=== PATIENT | male | born 1960 | race Caucasian/White ===

== ENCOUNTER → 2023-09-12 23:59 | Outpatient (BNV) | payer OTHER, SELFPAY | PROVIDERS: PCP Hospitalist; Visit Provider Internal Medicine Cardiovascular Disease | DX: I21.02 ST elevation (STEMI) myocardial infarction involving left anterior descending coronary artery (principal) | CPT/HCPCS: 92941; 93458; 99152 ==

== ENCOUNTER 2023-10-02 10:55 | Outpatient (AMB) | payer OTHER, SELFPAY ==
[2023-10-02 11:24] VITALS: BP 130/60; PULSE 66; BMI 37.1
--- NOTE | 2023-10-02 11:24 | MHC.OFFVIS ---
Intake Vital Signs 10/02/23 11:24 Height 5 ft 6 in Weight 229 lb 11.547 oz BMI 37.1 BP 130/60 Blood Pressure Location Rt brachial Position Sitting Pulse 66 Pulse Source Pulse Oximeter Intake Visit Reasons: fu [facility] cardiac cath Intake Note: f/up [facility] Cardiac cath pt its slight chest pain. [employer] Consultant Required: No Accompanied by: Self / Same As Patient Allergies hydrocortisone Allergy (Intermediate, Verified 09/28/21 10:08) Hives Medication List - Last Reconciled 10/02/23 by Austen Hernadez MD aspirin (Adult Aspirin Regimen) 81 mg PO DAILY atorvastatin 80 mg PO BEDTIME lisinopril 5 mg PO DAILY metoprolol succinate ER 25 mg PO DAILY ticagrelor (Brilinta) 90 mg PO BID HPI HPI Comments History of Present Illness Details [age] year gentleman here for follow-up. He was seen at [facility] during STEMI call when he presented with anterior ST elevation ND and VT arrest. He was resuscitated and taken urgently for cardiac catheterization which revealed proximal LAD plaque rupture with HARSH 2 flow. He had LAD diagonal bifurcation in wall which was treated with provisional stenting technique. He has done well since then. He still has some left-sided pains from CPR which happens when he coughs but definitely improving. He is taking his medications regularly. He is on aspirin and Brilinta. He is saying that after coming home he had blood in his stool and went back to [facility]. He does not remember if the cause was found for his bleeding. He was discharged home and was advised to continue his antiplatelet therapy which she has been taking. He is on atorvastatin 80 mg. [facility] Social History Housing: Apartment Patient Tobacco Use Status: Never used Tobacco e-Cigarette/Vaping Use: Never Used Second Hand Smoke Exposure: No service: Yes Current occupational status: employed Current occupation: [employer] Current occupational exposures/hazards: No Review of Systems Const Reports chills, Reports fatigue, Reports fever(s), Reports frequent falls, Reports weakness, Reports weight gain and Reports weight loss ENT Reports dizziness Card Reports chest pain, Reports leg edema, Reports lightheadedness, Reports palpitations, Reports dyspnea and Reports dyspnea on exertion Resp Reports cough, Reports dyspnea and Reports dyspnea on exertion GI Reports hematochezia Musc Reports abnormal gait, Reports muscle weakness, Reports numbness, Reports radiating pain into limb and Reports tingling Neuro Reports abnormal gait, Reports dizziness, Reports frequent falls, Reports numbness, Reports tingling and Reports weakness Endo Reports fatigue and Reports palpitations Physical Exam Vital Signs: Last Vital Signs Pulse 66 10/02/23 11:24 BP 130/60 10/02/23 11:24 BMI result Body Mass Index 37.1 GENERAL APPEARANCE: in no acute distress, pleasant. NECK: no carotid bruit, no jugular venous distention. SKIN: no suspicious lesions, warm and dry. HEART: no murmurs, regular rate and rhythm. LUNGS: clear to auscultation bilaterally. ABDOMEN: soft, nontender. EXTREMITIES: no edema. PERIPHERAL PULSES: equal. NEUROLOGIC: No gross deficits, AAO X 3 Assessment & Plan Assessment & Plan (1) ST elevation myocardial infarction (STEMI) of anterior wall: Code(s): I21.09 - ST elevation (STEMI) myocardial infarction involving other coronary artery of anterior wall Plan Pleasant 63 year gentleman is here for follow-up. Was seen during STEMI call when he presented with cardiac arrest and anterior ST-elevation ND. He was taken emergently for cardiac catheterization where LAD was stented across the large diagonal branch with provisional stenting approach. He has done well since then. He is on aspirin and Brilinta. I have advised him to continue both for at least a year and after that Brilinta becomes optional. He has been experiencing some nosebleeds and injuries to his nose doing work with some bleeding. He is asking whether Brilinta can be changed. I have advised him currently not to change Brilinta and wait for few months as he is within 1 month of his primary PCI. He will see us back in 3 months. At that stage I will consider changing him to Plavix from Brilinta. Aspirin should be lifelong. I have reviewed his records at [facility] and he got admitted after discharge with STEMI with diarrhea and blood in stool. He was thought to have enterocolitis with no drop in hemoglobin noted. He was treated conservatively and has done well since then with no bleeding. I think he can continue aspirin Brilinta as before. Thank you for allowing me to participate in the care of your patient. Please feel free to contact me if you have any questions. Orders: Orders Cardiac Rehab Today I21.09 - ST elevation (STEMI) myocardial infarction involving other coronary artery of anterior wall, Z98.61 - Coronary angioplasty status Coding Level of Care Code Est Pt Level 4 (56930) Diagnoses ST elevation myocardial infarction (STEMI) of anterior wall I21.09
== END 2023-10-02 11:58 | disposition home or self-care (01) ==
PROVIDERS: PCP Hospitalist; Visit Provider Internal Medicine Cardiovascular Disease
DX: I21.09 ST elevation (STEMI) myocardial infarction involving other coronary artery of anterior wall (principal)
CPT/HCPCS: 99214

== ENCOUNTER → 2023-10-02 10:55 | Outpatient (BNVA) | payer OTHER, SELFPAY | PROVIDERS: PCP Hospitalist; Visit Provider Internal Medicine Cardiovascular Disease | DX: I21.09 ST elevation (STEMI) myocardial infarction involving other coronary artery of anterior wall (principal) | CPT/HCPCS: 99212 ==

== ENCOUNTER 2024-11-04 13:53 | Outpatient (AMB) | payer MEDICARE, MEDICAID, SELFPAY ==
--- NOTE | 2024-11-04 14:46 | MHC.OFFVIS ---
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 He was seen at [facility] during STEMI call when he presented with anterior ST elevation SD and VT arrest. He was resuscitated and taken urgently for cardiac catheterization which revealed proximal LAD plaque rupture with HARSH 2 flow. He had LAD diagonal bifurcation in wall which was treated with provisional stenting technique. He has done well since then. He still has some left-sided pains from CPR which happens when he coughs but definitely improving. He is taking his medications regularly. He is on aspirin and Brilinta. He is saying that after coming home he had blood in his stool and went back to [facility]. He does not remember if the cause was found for his bleeding. He was discharged home and was advised to continue his antiplatelet therapy which she has been taking. He is on atorvastatin 80 mg. 11/04/2024: He returns after more than 1 year. He is saying that he did not get any appointment from office. He is asking whether he can stop Brilinta. No bleeding issues. No chest discomfort or shortness of breath. Clinically stable. [facility] Social History Housing: Apartment Patient Tobacco Use Status: Never used Tobacco e-Cigarette/Vaping Use: Never Used Second Hand Smoke Exposure: No service: Yes Current occupational status: employed Current occupation: [employer] Current occupational exposures/hazards: No Review of Systems Const Denies chills, Denies fatigue, Denies fever(s), Denies frequent falls, Denies weakness, Denies weight gain and Denies weight loss ENT Denies dizziness Card Denies chest pain, Denies leg edema, Denies lightheadedness, Denies palpitations, Denies dyspnea and Denies dyspnea on exertion Resp Denies cough, Denies dyspnea and Denies dyspnea on exertion GI Denies hematochezia Musc Denies abnormal gait, Denies muscle weakness, Denies numbness, Denies radiating pain into limb and Denies tingling Neuro Denies abnormal gait, Denies dizziness, Denies frequent falls, Denies numbness, Denies tingling and Denies weakness Endo Denies fatigue and Denies palpitations Physical Exam Vital Signs: Last Vital Signs Pulse 65 11/04/24 14:49 BP 110/70 11/04/24 14:49 BMI result Body Mass Index 40.8 GENERAL APPEARANCE: in no acute distress, pleasant. NECK: no carotid bruit, no jugular venous distention. SKIN: no suspicious lesions, warm and dry. HEART: no murmurs, regular rate and rhythm. LUNGS: clear to auscultation bilaterally. ABDOMEN: soft, nontender. EXTREMITIES: no edema. PERIPHERAL PULSES: equal. NEUROLOGIC: No gross deficits, AAO X 3 Office Procedures EKG Details: Sinus rhythm 65 beats per minute, normal axis, nonspecific ST changes, QTC 413 milliseconds. 85079-[id number], Complete Assessment & Plan Assessment & Plan (1) Stable angina: Code(s): I20.89 - Other forms of angina pectoris Category: Medical Plan 64 year gentleman who is here for follow-up. He has known history of anterior wall SD with cardiac arrest. This was treated with PCI. He made a good recovery after that. No significant residual disease was noted on his index cardiac catheterization. He is on aspirin and Brilinta currently. Brilinta is optional LV discussed and we have decided to stop the Brilinta. We will continue rest of his medications as before. He will follow up with us in 6 months. Thank you for allowing me to participate in the care of your patient. Please feel free to contact me if you have any questions. Medications: Discontinued ticagrelor (Brilinta) Discontinued Reason: Change Referral Type 90 mg PO BID Coding Level of Care Code Est Pt Level 4 (59213) Diagnoses Stable angina I20.89 CPT Codes EKG - CPT: 68353-[id number], Complete ([id number])
[2024-11-04 14:49] VITALS: BP 110/70; PULSE 65; BMI 40.8
--- OUTSIDE RECORDS SUMMARY | 2024-11-04 16:11 | XMS_ITS | Clinical Summary ---
Author Organization [employer] Address [address] [facility] [address] [place] [address] Care Team Providers Care Patient Registration Specialist Name Role Phone Unavailable Primary Care Provider Unavailabl e Social History Tobacco Use Types Packs/Day Years Used Date Smoking Tobacco: Never Assessed Sex and Gender Information Value Date Recorded Sex Assigned at Male 08/06/2022 10:27 AM EDT Legal Sex Male 10:27 AM EDT Gender Identity Male 08/06/2022 10:27 AM EDT Sexual Orientation Straight 08/06/2022 10 :27 AM EDT Plan of Treatment Health Maintenance Due Date Last Done Comments CT Colonography 1961 Colonoscopy 1961 Colorectal Cancer Screening 1961 Depression Screening 1961 FIT DNA/Cologuard 1961 FIT 1961 FOBT 1961 Lipid Panel 1961 Sigmoidoscopy 1961 Alcohol/Substance Use Screening 1973 Tobacco Screening 1973 DTaP/Tdap/Td Vaccines (1 - Tdap) 1980 Zoster Vaccines (1 of 2) 2011 COVID-19 Vaccine (2023-2 5 season) 2024 Influenza Vaccine (#1) 2024 RSV Patients and Pa tients Aged 60 years or older (1 - 1-dose 75+ series) 2036 HIB Vaccines Aged Out No longer eligi ble based on patient's age to complete this topic HPV Vaccines Aged Out No longer eligi ble based on patient's age to complete this topic Hepatitis A Vaccines Aged Out No long er eligible based on patient's age to complete this topic Hepatitis B Vaccines Aged Out No long er eligible based on patient's age to complete this topic IPV Vaccines Aged Out No longer eligi ble based on patient's age to complete this topic Meningococcal Vaccine Aged Out No ernestina aiden eligible based on patient's age to complete this topic Pneumococcal Vaccine: Pediat rics (0 to 5 Years) and At-Risk Patients (6 to 49) Years) Aged Out No longer eligible b ased on patient's age to complete this topic RSV under 20 months Aged Out No longe r eligible based on patient's age to complete this topic Rotavirus Vaccines Aged Out No longer eligible based on patient's age to complete this topic
--- OUTSIDE RECORDS SUMMARY | 2024-11-04 16:11 | XMS_ITS | Encounter Summary ---
Author Organization [employer] Address [address] [facility] [address] [place] [address] Care Team Providers Care Lead Caster Name Role Phone Unavailable Primary Care Provider Unavailabl e Encounter Details Date Type Department Care Team (Latest Contact Info) Description 12/14/2019 Abstract [facility] CONVERSIONS Dental, Provider, DDS Social History Tobacco Use Types Packs/Day Years Used Date Smoking Tobacco: Never Assessed Sex and Gender Information Value Date Recorded Sex Assigned at Male 08/06/2022 10:27 AM EDT Legal Sex Male 10:27 AM EDT Gender Identity Male 08/06/2022 10:27 AM EDT Sexual Orientation Straight 08/06/2022 10 :27 AM EDT documented as of this encounter Plan of Treatment Not on file documented as of this encounter Visit Diagnoses Not on filedocumented in this encounter
== END 2024-11-04 15:24 | disposition home or self-care (01) ==
PROVIDERS: Visit Provider Internal Medicine Cardiovascular Disease
DX: I20.89 Other forms of angina pectoris (principal)
CPT/HCPCS: 93010; 99214

== ENCOUNTER → 2024-11-04 13:53 | Outpatient (BNVA) | payer MEDICARE, MEDICAID, SELFPAY | PROVIDERS: Visit Provider Internal Medicine Cardiovascular Disease | DX: I20.89 Other forms of angina pectoris (principal); R94.31 Abnormal electrocardiogram [ECG] [EKG] | CPT/HCPCS: 93005; 99212 ==

== ENCOUNTER 2025-05-05 09:01 | Outpatient (AMB) | payer MEDICARE, MEDICAID, SELFPAY ==
--- OUTSIDE RECORDS SUMMARY | 2025-05-05 09:26 | XMS_ITS | Encounter Summary ---
Author Organization [employer] Address [address] [facility] [address] [place] [address] Care Team Providers Care B2B Sales Manager Name Role Phone Unavailable Primary Care Provider Unavailabl e Encounter Details Date Type Department Care Team (Latest Contact Info) Description 12/14/2019 Abstract [facility] CONVERSIONS Dental, Provider, DDS Social History [...]
[2025-05-05 09:56] VITALS: BP 130/78; PULSE 63; BMI 41.3
--- NOTE | 2025-05-05 09:56 | MHC.OFFVIS ---
Vital Signs 05/05/25 09:56 Height 5 ft 6 in Weight 255 lb 11.779 oz BMI 41.3 BP 130/78 Blood Pressure Location Lt brachial Position Sitting Pulse 63 Intake Visit Reasons: 6m follow up Intake Note: 6 month follow-up c/o leg swellling ? sleep study has been about to take Instructor Psychiatric Aide Required: No Allergies hydrocortisone Allergy (Intermediate, Verified 09/28/21 10:08) Hives Medication List - Last Reconciled 05/05/25 by Austen Hernadez MD aspirin (Adult Aspirin Regimen) 81 mg PO DAILY atorvastatin 80 mg PO BEDTIME lisinopril 5 mg PO DAILY metoprolol succinate ER 25 mg PO DAILY HPI Comments Details: 64-year-old gentleman here for follow-up. He was seen at [facility] during STEMI call when he presented with anterior ST elevation MN and VT arrest. He was resuscitated and taken urgently for cardiac catheterization which revealed proximal LAD plaque rupture with HARSH 2 flow. He had LAD diagonal bifurcation in wall which was treated with provisional stenting technique. He has done well since then. He still has some left-sided pains from CPR which happens when he coughs but definitely improving. He is taking his medications regularly. He is on aspirin and Brilinta. He is saying that after coming home he had blood in his stool and went back to [facility]. He does not remember if the cause was found for his bleeding. He was discharged home and was advised to continue his antiplatelet therapy which she has been taking. He is on atorvastatin 80 mg. 11/04/2024: He returns after more than 1 year. He is saying that he did not get any appointment from office. He is asking whether he can stop Brilinta. No bleeding issues. No chest discomfort or shortness of breath. Clinically stable. 05/05/25: He is here for follow-up. He is denying any chest discomfort or shortness of breath with activities. No orthopnea or PND. He has significant peripheral edema though. He is saying that his feet are swollen but on exam is legs are swollen all the way to the knees. There is bilateral swelling. [facility] Social History Housing: Apartment Patient Tobacco Use Status: Never used Tobacco e-Cigarette/Vaping Use: Never Used Second Hand Smoke Exposure: No service: Yes Current occupational status: employed Current occupation: [employer] Current occupational exposures/hazards: No Review of Systems Const Denies chills, Denies fatigue, Denies fever(s), Denies frequent falls, Denies weakness, Denies weight gain and Denies weight loss ENT Denies dizziness Card Denies chest pain, Denies leg edema, Denies lightheadedness, Denies palpitations, Denies dyspnea, Denies dyspnea on exertion, Denies orthopnea and Denies other (loss of consciousness) Resp Denies cough, Denies dyspnea and Denies dyspnea on exertion GI Denies hematochezia and Denies change in stool character Musc Denies abnormal gait, Denies muscle weakness, Denies numbness, Denies radiating pain into limb and Denies tingling Neuro Denies abnormal gait, Denies dizziness, Denies frequent falls, Denies numbness, Denies tingling and Denies weakness Endo Denies fatigue and Denies palpitations Physical Exam Vital Signs: Last Vital Signs Pulse 63 05/05/25 09:56 BP 130/78 05/05/25 09:56 BMI result Body Mass Index 41.3 GENERAL APPEARANCE: in no acute distress, pleasant. NECK: no carotid bruit, no jugular venous distention. SKIN: no suspicious lesions, warm and dry. HEART: no murmurs, regular rate and rhythm. LUNGS: clear to auscultation bilaterally. ABDOMEN: soft, nontender. EXTREMITIES: 2+ edema to the knees. PERIPHERAL PULSES: equal. NEUROLOGIC: No gross deficits, AAO X 3 Assessment & Plan Assessment & Plan (1) Stable angina: Code(s): I20.89 - Other forms of angina pectoris Category: Medical (2) Peripheral edema: Code(s): R60.0 - Localized edema Category: Medical Plan [id number] who is here for follow-up. He has known history of anterior wall MN with cardiac arrest. He underwent primary PCI. He did well after that and is currently on aspirin monotherapy. Blood pressure is well controlled. His main complaint today is lower extremity edema. He is denying any orthopnea or PND but has significant edema on both legs. We will start him on Lasix 40 mg to help reduce the edema. I will check an echocardiogram to assess LV function. If no obvious issues on echocardiography then would to further workup including urinalysis and liver function testing. Thank you for allowing me to participate in the care of your patient. Please feel free to contact me if you have any questions. Orders: Orders CA echo transthoracic complete Today R60.0 - Localized edema Coding Level of Care Code Est Pt Level 4 (19666) Diagnoses Stable angina I20.89 Peripheral edema R60.0
== END 2025-05-05 10:25 | disposition home or self-care (01) ==
LOC: HO.HCS 09:01
PROVIDERS: Visit Provider Internal Medicine Cardiovascular Disease
DX: I20.89 Other forms of angina pectoris (principal); R60.0 Localized edema
CPT/HCPCS: 99214

== ENCOUNTER → 2025-05-05 09:01 | Outpatient (BNVA) | payer MEDICARE, MEDICAID, SELFPAY | PROVIDERS: Visit Provider Internal Medicine Cardiovascular Disease | DX: R60.0 Localized edema (principal); I20.89 Other forms of angina pectoris | CPT/HCPCS: 99212 ==

== ENCOUNTER → 2025-06-14 07:56 | Outpatient (REF) | payer MEDICARE, MEDICAID, SELFPAY ==
--- NOTE | 2025-06-14 07:59 | CA_ITS ---
Transthoracic Echocardiogram Patient (Last, First, Middle): Dane Singleton E Gender: M Date of : 1960 Age: 64 Procedure Date: 06/14/2025 Procedure Type: Transthoracic Echocardiogram Location: OP Height: 167.64 cm Weight: 106.6 kg BSA: 2.14 m2 Heart Rate: 68 bpm BP: 132 / 70 mmHg Fisher [place] Net: SB Referring MD: Austen Hernadez MD Furniture Finisher: Jose Manuel Craig MD Symptoms: R60.0 - Localized edema Study Quality: Technically Difficult ECG Rhythm: Sinus Conclusions: - 1. Hyperdynamic LV EF of greater than 70% with impaired relaxation filling pattern 2. Mitral annular calcification noted with normal cardiac valvular Dopplers Findings Left Ventricle Normal left ventricular cavity size. There is normal left ventricular wall thickness. The left ventricular systolic function is hyperdynamic. The visually estimated ejection fraction is >70%. Regional wall motion abnormalities can not be excluded due to suboptimal endocardial definition. Spectral Doppler is indicative of an impaired relaxation filling pattern. E/E prime ratio is between 8 and 15 consistent with indeterminate filling pressures. There is mild septal asymmetric hypertrophy. Right Ventricle The right ventricle was not well visualized. Atria The left atrium is mildly dilated. Interatrial shunt cannot be excluded. The right atrium was not well visualized. Aortic Valve The aortic valve was not well visualized. There is no aortic valve stenosis. There is no aortic valve regurgitation. Mitral Valve The mitral valve was not well visualized. There is moderate posterior mitral leaflet thickening. There is moderate mitral annular calcification. There is trace mitral valve regurgitation. There is no mitral valve stenosis. Pulmonic Valve The pulmonic valve was not well visualized. Tricuspid Valve Tricuspid regurgitation envelope is inadequate for calculation of right ventricular systolic pressure. Normal right atrial pressure. There is no evidence of pulmonary hypertension. Great Vessels All visible segments of the aorta are normal in size. The pulmonary artery was not well visualized. There is no dilatation of the ascending aorta measuring 3.40 cm. Small plaque is seen in the sino tubular ridge. Venous The inferior vena cava is normal in size. Pericardium/Pleural The pericardium was not well visualized. Prior Study Comparison No prior study available for comparison. Measurements 2D Linear Measurements IVSd: 1.33 0.6-0.9/0.6-1.0 cm LVIDd: 4.83 3.9-5.3/4.2-5.9 cm LVIDd Index: 2.26 2.4-3.2/2.2-3.1 cm/m2 LVIDs: 2.58 2.0-3.6 cm LVPWd: 1.03 0.7-1.1 cm LA Diam: 4.70 2.7-3.8/3.0-4.0 cm LAIDs Index: 2.20 1.5-2.3 cm/m2 LV Mass: 269.38 67-162/88-224 g LV Mass Index: 125.88 43-95/49-115 g/m2 LVOT Diam: 2.10 3.0+(-)1.3 cm 2D Systolic Function EF 4C: 79.40 >55% EF 2C: 66.80 >55% EF BiP: 73.40 >55% Mitral Valve MV Pk E: 1.16 MV PK A: 1.31 MV Decel Time: 283.00 E/A: 0.90 E'Lateral: 5.00 E'Medial: 5.87 E/E' Med: 19.80 E/E' Lat: 23.20 PHT: 83.00 MVA PHT: 2.65 Decel [place]: 4.11 Aortic Valve AoV Pk Jan: 1.58 AoV Pk Grad: 10.00 HEMAL: 2.87 LVOT LVOT Pk Jan: 1.31 LVOT Mn Jan: 0.95 LVOT VTI: 0.27 LVOT Pk Grad: 7.00 LVOT Mn Grad: 4.00 LVOT Diam: 2.10 LVOT Area: 3.46 Diastolic Function MV Pk E: 1.16 MV Pk A: 1.31 E/A: 0.90 E'Medial: 5.87 E/E' Med: 19.80 E' Laterial: 5.00 E/E' Lat: 23.20 Right Ventricle TAPSE (mm): 25.30 TVS' Jan: 19.20 Tricuspid Valve RA Press: 3.00 Great Vessels Aorta Sinus of Valsalva: 3.70 2.0-3.5 cm Ao Asc: 3.40 2.1-3.4 cm Pulmonary Valve PV Pk Jan: 1.59 Peak PV Grad: 10.00 Updated in Other Vendor System with Status of Final Jose Manuel Craig MD electronically signed on 06/14/2025 1:54:20 PM with status of Final
--- OUTSIDE RECORDS SUMMARY | 2025-06-14 08:00 | XMS_ITS | Encounter Summary ---
Author Organization [employer] Address [address] [facility] [address] [place] [address] Care Team Providers Care Theatre Manager Name Role Phone Unavailable Primary Care Provider Unavailabl e Encounter Details Date Type Department Care Team (Latest Contact Info) Description 12/14/2019 Abstract [facility] CONVERSIONS Dental, Provider, DDS Social History [...]
--- OUTSIDE RECORDS SUMMARY | 2025-06-14 08:00 | XMS_ITS | Clinical Summary ---
Author Organization [employer] Address [address] [facility] [address] [place] [address] Care Team Providers Care Brick Machine Operator Name Role Phone Unavailable Primary Care Provider [...] FOBT 1961 Lipid Panel 1961 Sigmoidoscopy 1961 Disability Screening 1961 Alcohol/Substance Use Screening 1973 Tobacco Screening 1973 DTaP/Tdap/Td Vaccines (1 - Tdap) 1980 Pneumococcal Vaccine: 50+ Ye ars (1 of 1 - PCV) 2011 Zoster Vaccines (1 of 2) 2011 COVID-19 Vaccine (1 - 2023-2 5 season) 2025 Influenza Vaccine (#1) 2025 RSV Patients and Pa tients Aged 60 [...] patient's age to complete this topic Meningococcal B Vaccine Aged Out No l onger eligible based on patient's age to complete [...]
== END ==
LOC: HO.CARD 07:56
PROVIDERS: Visit Provider Internal Medicine Cardiovascular Disease
DX: R60.0 Localized edema (principal)
CPT/HCPCS: 93306

== ENCOUNTER → 2025-06-14 07:59 | Outpatient (BNV) | payer MEDICARE, MEDICAID, SELFPAY | PROVIDERS: Visit Provider Internal Medicine Cardiovascular Disease | DX: I50.9 Heart failure, unspecified (principal); I42.2 Other hypertrophic cardiomyopathy; I34.81 Nonrheumatic mitral (valve) annulus calcification | CPT/HCPCS: 93306 ==

== ENCOUNTER 2025-08-31 12:44 | Outpatient (AMB) | payer MEDICARE, MEDICAID, SELFPAY ==
[2025-08-31 12:59] VITALS: BP 126/76; PULSE 69; BMI 39.4
--- NOTE | 2025-08-31 12:59 | A.OFFVIS_ITS ---
Vital Signs 08/31/25 12:59 Height 5 ft 6 in Weight 243 lb 13.3 oz BMI 39.4 BP 126/76 Blood Pressure Location Lt brachial Position Sitting Pulse 69 Pulse Source Pulse Oximeter Intake Visit Reasons: 3 mth f/up [employer]oc[employer] Required: No Accompanied by: Self / Same As Patient Allergies hydrocortisone Allergy (Intermediate, Verified 08/31/25 13:08) Hives Medication List - Last Reconciled 08/31/25 by Kenneth Bae NP aspirin (Adult Aspirin Regimen) 81 mg PO DAILY atorvastatin 80 mg PO BEDTIME furosemide (Lasix) 40 mg PO DAILY lisinopril 5 mg PO DAILY metoprolol succinate ER 25 mg PO DAILY HPI Comments Details: This is a 64-year-old male patient coming in for a follow-up visit. Patient with a history of STEMI in September of 2023 and VT arrest. He was resuscitated and underwent cardiac catheterization that revealed LAD block rupture, had LAD diagonal bifurcation and underwent PCI placement. At his last visit, patient has been reporting some leg swelling for which patient was put on Lasix therapy. Patient has undergone an echo since then. Today, patient is reporting feeling well overall without any cardiac symptoms of exertional chest pain, shortness of breath, palpitations, dizziness, orthopnea, PND, leg edema, presyncope or syncope. Patient is reporting compliance with all medications but is asking about coming off all the medications on his list as he believes that medications are not good for health. [facility] Social History Housing: Apartment Patient Tobacco Use Status: Never used Tobacco e-Cigarette/Vaping Use: Never Used Second Hand Smoke Exposure: No service: Yes Current occupational status: employed Current occupation: [employer] Current occupational exposures/hazards: No Review of Systems Const Denies daytime sleepiness, Denies difficulty sleeping, Denies snoring, Denies stops breathing during sleep and Denies weakness Card Denies chest pain, Denies rapid heart rate, Denies irregular heart rhythm, Denies claudication, Denies leg edema, Denies lightheadedness, Denies palpitations, Denies dyspnea, Denies dyspnea on exertion, Denies orthopnea, Denies paroxysmal nocturnal dyspnea and Denies slow heart rate Resp Denies cough, Denies dyspnea, Denies dyspnea on exertion and Denies snoring GI Reports no additional complaints, Denies hematochezia, Denies change in stool character and Denies dyspepsia Musc Denies abnormal gait, Denies muscle weakness and Denies numbness Neuro Denies abnormal gait, Denies numbness and Denies weakness Endo Denies palpitations Physical Exam Vital Signs: Last Vital Signs Pulse 69 08/31/25 12:59 BP 126/76 08/31/25 12:59 BMI result Body Mass Index 39.4 Const General: cooperative, healthy appearing, comfortable and no acute distress Orientation/consciousness: patient oriented x3 HEENT Head: Yes normal to inspection Neck Neck: Yes normal visual inspection, Yes trachea midline and Yes supple Chest Chest palpation & inspection: normal inspection of the chest Resp Effort & Inspection: normal respiratory effort Auscultation: clear to auscultation bilaterally, no crackles, no rales, no rhonchi and no wheezes Cardio Jugular venous distension: no JVD Palpation: normal PMI Rate: regular rate Rhythm: regular rhythm Heart sounds: S1 normal heart sound present, S2 normal heart sound present, no click, no gallops, no murmurs and no rubs Peripheral pulses: Peripheral pulses 2+ throughout GI Inspection: Yes normal to inspection Palpation (GI): Soft to palpation Auscultation: normal bowel sounds Skin General skin exam: no rashes or lesions noted Neuro General: patient oriented x3 Extrem General: Yes normal to inspection, No no pedal edema and No calf tenderness Psych Appearance: grossly normal Mental Status: mental status grossly normal Speech and movement: Normal speech and movement present Assessment & Plan Assessment & Plan (1) Stable angina: Code(s): I20.89 - Other forms of angina pectoris Category: Medical (2) ST elevation myocardial infarction (STEMI) of anterior wall: Code(s): I21.09 - ST elevation (STEMI) myocardial infarction involving other coronary artery of anterior wall Category: Medical Plan In September of 2023, patient was at [facility] for STEMI and VT arrest where patient was resuscitated and underwent cardiac catheterization that showed RCA is small in size with a large marginal branch with ostial disease of 80% stenosis and a wrap-around LAD with proximal plaque rupture involving LAD diagonal bifurcation. Patient was treated with PCI to the LAD. 06/14/2025-patient underwent an echo study that showed hyperdynamic LVEF of greater than 70% with impaired relaxation filling pattern and mitral annular calcification. Clinically stable and without any cardiac symptoms. Patient was put on Lasix therapy due to complaints of lower extremity swelling however patient states that he thinks this is more dependent due to him sleeping on a chair versus a bed. Patient thinks that his swelling is improved in significantly and is no longer getting any edema given that he is sleeping in his bed. Patient would li ke to come office Lasix therapy. Advised on a low-salt diet, daily weight monitoring, and wearing compression socks as needed. Patient is also hesitant on being on medications and is asking about coming off all medications. Explained in details the risks involved with discontinued his medications properly. Patient verbalizes understanding. Patient to continue with lifelong aspirin therapy. Continue statin therapy with an LDL goal less than 70. Continue with metoprolol and lisinopril with a blood pressure goal less than 130/80. Blood pressure today is well-controlled. Patient does note that he has been tried on his and to lose weight however has been unsuccessful. Patient would like to meet with the weight management appointment and therefore we will put a referral and. Advised on heart healthy diet, regular exercise, med compliance, and aggressive management of vascular risk factors. Follow up in 6 months. In the interim, patient will call the office with any concerns or change in symptoms. Advised to seek ER care in case of exertional chest pain not resolved with rest. This note was generated using voice recognition software. While every effort has been made to ensure accuracy and proper personnel representative, there may be occasional errors that could affect the content or meaning of the described symptoms. Orders: Referrals Medical Weight Management Referral I25.10 - Atherosclerotic heart disease of [place] coronary artery without angina pectoris Medications: Discontinued furosemide (Lasix) Discontinued Reason: Patient Refused 40 mg PO DAILY 60 tabs 3RF Coding Level of Care Code Est Pt Level 4 (81996) Complex visit Add On G2211 Diagnoses Stable angina I20.89 ST elevation myocardial infarction (STEMI) of anterior wall I21.09 Time Spent (min) 32 Comment Time spent in reviewing the chart, test results, assessment, counseling and documentation.
--- OUTSIDE RECORDS SUMMARY | 2025-08-31 16:20 | XMS_ITS | Clinical Summary ---
Author Organization [employer] Address [address] [place] [address] Care Team Providers Care Night Time Nanny Name Role Phone Unavailable Primary Care Provider [...] of 2) 2011 COVID-19 Vaccine (1 - 2024-2 6 season) 2025 Influenza Vaccine (#1) 2025 RSV [...]
--- OUTSIDE RECORDS SUMMARY | 2025-08-31 16:20 | XMS_ITS | Encounter Summary ---
Author Organization [employer] Address [address] [place] [address] Care Team Providers Care Funeral Assistant Name Role Phone Unavailable Primary Care Provider Unavailabl e Encounter Details Date Type Department Care Team (Latest Contact Info) Description 12/14/2019 Abstract [facility] CONVERSIONS Dental, Provider, DDS Social History [...]
== END 2025-08-31 13:37 | disposition home or self-care (01) ==
LOC: HO.HCS 12:45
DX: I20.89 Other forms of angina pectoris (principal); I21.09 ST elevation (STEMI) myocardial infarction involving other coronary artery of anterior wall
CPT/HCPCS: 99214; G2211

== ENCOUNTER → 2025-08-31 12:44 | Outpatient (BNVA) | payer MEDICARE, MEDICAID, SELFPAY | DX: I21.09 ST elevation (STEMI) myocardial infarction involving other coronary artery of anterior wall (principal); I20.89 Other forms of angina pectoris | CPT/HCPCS: 99212 ==